=== PATIENT | female | born 1990 | race Asian ===

== ENCOUNTER 2016-11-26 22:20 | Emergency (ER) | payer OTHER ==
[2016-11-26] MEDS ORDERED: HYDROmorphone 1 MG/ML SYRINGE IVP STA (23:10)
[2016-11-26] MEDS ORDERED: SODIUM CHLORIDE 0.9% 1,000 ML IV ONE ×2 (23:10)
[2016-11-26] MEDS ORDERED: ONDANSETRON 4 MG/2 ML VIAL IVP STA (23:10)
--- NOTE | 2016-11-26 23:16 | ED Physician Documentation ---
History of Present Illness - Stated complaint Stated Complaint: BACK PX/N/V - Chief complaint Chief Complaint: Back Pain - History obtained from History obtained from: Patient, Family - History of Present Illness Timing: How many weeks ago (1) Pain level max: 9 Pain level now: 9 Improved by: nothing Worsened by: nothing - Additonal information Additional information: Patient is a 26-year-old female who is seen at [facility] 1 week ago for generalized abdominal pain and lower abdominal pain, diagnosed with UTI and placed on Macrobid. States did not really improve then tonight had sudden onset of worsening generalized abdominal pain. No fevers. No vomiting. Review of Systems Ten Systems: 10 systems reviewed and negative Constitutional: denies: Fever, Chills Ears: denies: Ear pain Nose: denies: Rhinorrhea / runny nose, Congestion Throat: denies: Sore throat Cardiac: denies: Chest pain / pressure Respiratory: denies: Cough GI: reports: Abdominal Pain (diffuse). denies: Nausea, Vomiting, Diarrhea : denies: Dysuria, Frequency, Hesitancy, Now EGA Skin: denies: Rash Musculoskeletal: reports: Back pain (B flank pain). denies: Neck pain Neurologic: denies: Headache PD PAST MEDICAL HISTORY - Past Medical History Past Medical History: No - Past Surgical History Past Surgical History: No - Present Medications Home Medications: Ambulatory Orders Medication Instructions Recorded Confirmed Ciprofloxacin HCl [Cipro] 500 mg PO BID #28 tablet 11/27/16 Ondansetron Odt [Zofran] 4 mg TL Q6H PRN #10 tablet 11/27/16 Oxycodone HCl/Acetaminophen 1 - 2 each PO Q6H PRN #14 tablet 11/27/16 [Percocet 5-325 mg Tablet] - Allergies Allergies/Adverse Reactions: Allergies Allergy/AdvReac Type Severity Reaction Status Date / Time No Known Drug Allergies Allergy Verified 11/26/16 22:47 - Social History Does the pt smoke?: No Smoking Status: Never smoker Does the pt drink ETOH?: No Does the pt have substance abuse?: No - Immunizations Immunizations are current?: Yes - POLST Patient has POLST: No PD ED PE NORMAL - Vitals Vital signs reviewed: Yes - General General: Alert and oriented X 3, No acute distress, Well developed/nourished - HEENT HEENT: Moist mucous membranes - Neck Neck: Supple, no meningeal sign - Cardiac Cardiac: RRR, Strong equal pulses - Respiratory Respiratory: No respiratory distress, Clear bilaterally - Abdomen Abdomen: Soft, Non distended, Other (Diffusely tender to palpation without peritoneal signs) - Back Back: No spinal TTP, Other (Bilateral CVA tenderness) - Derm Derm: Warm and dry, No rash - Extremities Extremities: No edema, No calf tenderness / cord - Neuro Neuro: Alert and oriented X 3 - Psych Psych: Normal mood, Normal affect Results - Vitals Vitals: Vital Signs - 24 hr 11/26/16 11/27/16 11/27/16 22:44 00:04 00:53 Temperature 36.7 C 36.7 C Heart Rate 82 82 95 Respiratory 16 15 18 Rate Blood Pressure 148/93 H 126/79 137/95 H O2 Saturation 99 100 98 11/27/16 11/27/16 01:10 01:43 Temperature Heart Rate 97 88 Respiratory 18 16 Rate Blood Pressure 115/76 124/66 O2 Saturation 100 99 Oxygen O2 Source Room air - Labs Labs: Laboratory Tests 11/26/16 11/26/16 11/26/16 23:20 23:20 23:20 WBC 11.7 H RBC 4.82 Hgb 13.5 Hct 40.0 MCV 83.0 MCH 28.0 MCHC 33.8 RDW 13.2 Plt Count 260 MPV 7.1 L Neut # 7.0 H Lymph # 3.3 [place] # 1.0 Eos # 0.3 Baso # 0.1 Absolute Nucleated RBC 0.00 Nucleated RBCs 0.0 Sodium 138 Potassium 4.0 Chloride 104 Carbon Dioxide 27 Anion Gap 7.0 BUN 16 Creatinine 1.0 Estimated GFR (MDRD) 68 L Glucose 86 Calcium 10.0 Total Bilirubin 0.5 AST 28 ALT 21 Alkaline Phosphatase 56 Total Protein 7.1 Albumin 4.3 Globulin 2.8 Albumin/Globulin Ratio 1.5 Lipase 47 Serum HCG, Qual NEGATIVE Urine Color Urine Clarity Urine pH Ur Specific [place] Urine Protein Urine Glucose (UA) Urine Ketones Urine Occult Blood Urine Nitrite Urine Bilirubin Urine Urobilinogen Ur Leukocyte Esterase Urine RBC Urine WBC Ur Squamous Epith Cells Urine Bacteria Ur Microscopic Review Urine Culture Comments 11/27/16 00:45 WBC RBC Hgb Hct MCV MCH MCHC RDW Plt Count MPV Neut # Lymph # [place] # Eos # Baso # Absolute Nucleated RBC Nucleated RBCs Sodium Potassium Chloride Carbon Dioxide Anion Gap BUN Creatinine Estimated GFR (MDRD) Glucose Calcium Total Bilirubin AST ALT Alkaline Phosphatase Total Protein Albumin Globulin Albumin/Globulin Ratio Lipase Serum HCG, Qual Urine Color YELLOW Urine Clarity CLEAR Urine pH 6.0 Ur Specific [place] <=1.005 Urine Protein 30 H Urine Glucose (UA) NEGATIVE Urine Ketones NEGATIVE Urine Occult Blood TRACE-INTA Urine Nitrite NEGATIVE Urine Bilirubin NEGATIVE Urine Urobilinogen 0.2 (NORMAL) Ur Leukocyte Esterase NEGATIVE Urine RBC 0-5 Urine WBC 0-3 Ur Squamous Epith Cells RARE Squamous Urine Bacteria Few Ur Microscopic Review INDICATED Urine Culture Comments NOT INDICATED - Rads (name of study) CT abd pelvis Radiology: Prelim report reviewed, EMP read contemporaneously, See rad report ( Slightly heterogeneous enhancement of the kidneys bilaterally with mild perinephric stranding. Findings could represent pyelonephritis. . Moderate to large amount of stool in the colon. No other acute abnormality seen. ) PD MEDICAL DECISION MAKING - ED course Complexity details: reviewed results, re-evaluated patient, considered differential, d/w patient, d/w family ED course: Patient is a 26-year-old female who presents to the emergency department with what appears to be pyelonephritis. She is very well-appearing, nontoxic. Will change her antibiotic to ciprofloxacin. We did discuss the risks of the medication including the black box warnings, but she is at low risk for this. Pain well controlled. Tolerating p.o. without difficulty. Patient counseled regarding signs and symptoms for which I believe and urgent re-evaluation would be necessary. Patient with good understanding of and agreement to plan and is comfortable going home at this time This document was made in part using voice recognition software. While efforts are made to proofread this document, sound alike and grammatical errors may occur. Patient also has constipation and will take a laxative at home for this Departure - Departure Disposition: 01 Home, Self Care Clinical Impression: Pyelonephritis Condition: Good Instructions: ED Kidney Infec Female Follow-Up: Meseret Celeste MD [Primary Care Provider] - Within 1 week Prescriptions: Ciprofloxacin HCl [Cipro] 500 mg PO BID #28 tablet Oxycodone HCl/Acetaminophen [Percocet 5-325 mg Tablet] 1 - 2 each PO Q6H PRN # 14 tablet PRN Reason: pain Ondansetron Odt [Zofran] 4 mg TL Q6H PRN #10 tablet PRN Reason: Nausea / Vomiting Comments: Take all antibiotics until gone. Return if you worsen. Do not drink alcohol or drive while on narcotic pain medicine. Note that many narcotic pain relievers also contain tylenol/acetaminophen. Please ensure that your total dose of acetaminophen from all sources does not exceed 3 grams (3000mg) per day. You may constipated on this medication, take a stool softener such as "Colace" twice a day while you are on it. Also recommend a kpoz-vha-aluzljg laxative such as senna or MiraLAX any day that you do not have a bowel movement. If you received narcotic pain medication in the emergency department, do not drive or operate machinery for the next 24 hours. Your blood pressure was elevated today on check in to the emergency department. This does not mean that you have hypertension, it is a common phenomenon to check into the emergency department and have elevated blood pressure. I recommend that you see your primary care physician within the week to have it rechecked when you're feeling better. Discharge Date/Time: 11/27/16 01:46
[2016-11-26] MEDS ORDERED: HYDROmorphone 1 MG/ML SYRINGE ONE (23:18)
[2016-11-26] MEDS ORDERED: ONDANSETRON 4 MG/2 ML VIAL ONE (23:18)
[2016-11-26 23:39] LABS: BASOPHILS # (AUTO) 0.1 10^3/uL (0.0-0.1); BASOPHILS % (AUTO) 0.8 %; EOSINOPHILS # (AUTO) 0.3 10^3/uL (0.0-0.7); EOSINOPHILS % (AUTO) 2.4 %; HGB - HEMOGLOBIN 13.5 g/dL (12.0-16.0); LYMPHOCYTES # (AUTO) 3.3 10^3/uL (1.5-3.5); LYMPHOCYTES % (AUTO) 28.1 %; MEAN CORPUSCULAR HGB CONC 33.8 g/dL (32.0-36.0); MEAN PLATELET VOLUME 7.1 fL (7.9-10.8); MONOCYTES % (AUTO) 8.8 %; NEUTROPHILS % (AUTO) 59.9 %; RED BLOOD COUNT 4.82 10^6/uL (4.20-5.40); RED CELL DISTRIBUTION WIDTH 13.2 % (12.0-15.0); UNCORRECTED WHITE BLOOD COUNT 11.7 x10^3/uL; WHITE BLOOD COUNT 11.7 x10^3/uL (4.8-10.8)
[2016-11-26 23:51] LABS: ALBUMIN/GLOBULIN RATIO 1.5 (1.0-2.2); BILIRUBIN,TOTAL 0.5 mg/dL (0.2-1.0); TOTAL PROTEIN 7.1 g/dL (6.7-8.2)
[2016-11-27] MEDS ORDERED: IOPAMIDOL-300 100 ML VIAL ONE (00:08)
[2016-11-27] MEDS ORDERED: IOPAMIDOL-300 100 ML VIAL IVP ONE (00:37)
[2016-11-27 00:56] LABS: BILIRUBIN,URINE NEGATIVE (NEGATIVE)
[2016-11-27] MEDS ORDERED: PROMETHAZINE INJ 25 MG in SODIUM CHLORIDE 0.9% 50 ML IV STA (01:00)
[2016-11-27 01:05] LABS: UA w/ MICROSCOPIC CHARGE YES
[2016-11-27 01:06] LABS: UR CULTURE IF IND NOT INDICATED; WBC,URINE 0-3 /HPF (0-5)
[2016-11-27] MEDS ORDERED: PROMETHAZINE 25 MG/1 ML VIAL ONE (01:08)
--- NOTE | 2016-11-27 01:14 | CT Preliminary Report ---
Exam: CT Abdomen/Pelvis W/ IMPRESSION: 1. Slightly heterogeneous enhancement of the kidneys bilaterally with mild perinephric stranding. Fin dings could represent pyelonephritis. 2. Moderate to large amount of stool in the colon. 3. No other acute abnormality seen. [facility] SITE ID: [id number]
--- NOTE | 2016-11-27 01:17 | CT Report ---
EXAM: CT ABDOMEN AND PELVIS EXAM DATE: 11/27/2016 12:24 AM. CLINICAL HISTORY: Abdominal pain and flank pain. Recent treatment for urinary tract infection. COMPARISONS: None. TECHNIQUE: Routine helical CT imaging was performed through the abdomen and pelvis. IV contrast: Anisha onic. Enteric contrast: No. Reconstructions: Coronal and sagittal. In accordance with CT protocol optimization, one or more of the following dose reduction techniques w ere utilized for this exam: automated exposure control, adjustment of mA and/or KV based on patient s ize, or use of iterative reconstructive technique. FINDINGS: Lung Bases: Unremarkable. Liver: Normal. No masses. Gallbladder/Bile Ducts: Unremarkable. Spleen: Normal. Pancreas: Normal. Adrenal Glands: Normal. Kidneys: Mildly heterogeneous enhancement bilaterally. Mild bilateral perinephric stranding. No hydro nephrosis. No abscess. Peritoneal Cavity/Bowel: Moderate to large amount of stool in the colon. No diverticulitis. No bowel obstruction. Normal-sized mesenteric and retroperitoneal lymph nodes. No free air or free fluid. Appe ndix appears normal. Pelvic Organs: Normal. The bladder and visualized pelvic organs are within normal limits. Vasculature: No aneurysms or other significant abnormality. Bones: No significant abnormality. Other: None. IMPRESSION: 1. Slightly heterogeneous enhancement of the kidneys bilaterally with mild perinephric stranding. Fin dings could represent pyelonephritis. 2. Moderate to large amount of stool in the colon. 3. No other acute abnormality seen. [facility] Referring Provider Line: [phone] SITE ID: [id number]
[2016-11-27] MEDS ORDERED: CIPROFLOXACIN 250 MG TABLET PO STA (01:18)
[2016-11-27] MEDS ORDERED: CIPROFLOXACIN 250 MG TABLET PO ONE (01:28)
[2016-11-27 01:45] VITALS: BP 124/66
== END 2016-11-27 01:46 | disposition home or self-care (01) ==
LOC: ED 22:20
DX: N12 Tubulo-interstitial nephritis, not specified as acute or chronic (principal); R03.0 Elevated blood-pressure reading, without diagnosis of hypertension
CPT/HCPCS: 36415; 74177; 80053; 81001; 83690; 84703; 85025; 96365; 96375; 99284; A9270; J1170; J7040; Q9967; 81003; 87086

== ENCOUNTER 2017-08-02 08:34 | Emergency (ER) | payer OTHER ==
[2017-08-02] MEDS ORDERED: KETOROLAC 60 MG/2 ML VIAL IM STA (09:10)
[2017-08-02] MEDS ORDERED: DEXAMETHASONE 10 MG/ML VIAL PO STA (09:10)
--- NOTE | 2017-08-02 09:14 | ED Physician Documentation ---
PD HPI NECK PAIN - Stated complaint Stated Complaint: BACK,NECK PX- R SHOULDER PX - Chief complaint Chief Complaint: Back Pain - History obtained from History obtained from: Patient - History of Present Illness Timing - onset: How many days ago (2) Timing - duration: Days (2) Timing - details: Abrupt onset, Still present, Waxing and waning Location: Lower, Right Quality: Pain, Spasm, Sharp Associated symptoms: No: Fever, Weakness, Numbness Improves with: Rest, Position, Meds Worsened by: Movement, Lifting Contributing factors: Other (lifting in the gym) Similar symptoms before: Has not had sx before Recently seen: Not recently seen - Additional information Additional information: 27-year-old previously healthy female has been doing some lifting in the gym and on Tuesday 2 days ago she developed acute pain in her neck and right upper arm. She took some Naprosyn and this seemed to help she had less pain yesterday and today she woke up with no pain. She went to the gym workout and was okay with workout and then when she was brushing her hair she had sudden onset of spasm in the right lower neck and right shoulder Review of Systems Constitutional: denies: Fever Eyes: denies: Decreased vision Ears: denies: Ear pain Nose: denies: Congestion Throat: denies: Sore throat Cardiac: denies: Chest pain / pressure Respiratory: denies: Dyspnea, Cough GI: denies: Abdominal Pain, Nausea, Vomiting : denies: Dysuria, Frequency PD PAST MEDICAL HISTORY - Past Medical History Past Medical History: No - Past Surgical History Past Surgical History: No - Present Medications Home Medications: Ambulatory Orders Medication Instructions Recorded Confirmed Ciprofloxacin HCl [Cipro] 500 mg PO BID #28 tablet 11/27/16 Ondansetron Odt [Zofran] 4 mg TL Q6H PRN #10 tablet 11/27/16 Oxycodone HCl/Acetaminophen 1 - 2 each PO Q6H PRN #14 tablet 11/27/16 [Percocet 5-325 mg Tablet] Cyclobenzaprine [Flexeril] 10 mg PO TID PRN #20 tablet 08/02/17 HYDROcod/ACETAM 5/325 [[place] 5/325] 1 - 2 ea PO Q6H PRN #15 tablet 08/02/17 - Allergies Allergies/Adverse Reactions: Allergies Allergy/AdvReac Type Severity Reaction Status Date / Time No Known Drug Allergies Allergy Verified 11/26/16 22:47 - Social History Does the pt smoke?: No Smoking Status: Never smoker Does the pt drink ETOH?: No Does the pt have substance abuse?: No - Immunizations Immunizations are current?: Yes - POLST Patient has POLST: No PD ED PE NORMAL - Vitals Vital signs reviewed: Yes (normal ) - General General: Alert and oriented X 3, No acute distress - HEENT HEENT: Atraumatic, PERRL, EOMI - Neck Neck: Supple, no meningeal sign, No bony TTP, Other (There is dense spasm to the paraspinous muscles at the C7 T1 area over the top of the scapula on the right side. She has preserved range of motion to the shoulder and arm and she has restriction in movment of the neck related to the spasms. ) - Cardiac Cardiac: RRR, No murmur - Respiratory Respiratory: No respiratory distress, Clear bilaterally - Back Back: No CVA TTP, No spinal TTP - Derm Derm: Normal color, Warm and dry, No rash - Extremities Extremities: No deformity, No edema - Neuro Neuro: No motor deficit, No sensory deficit Eye Opening: Spontaneous Motor: Obeys Commands Verbal: Oriented GCS Score: 15 - Psych Psych: Normal mood, Normal affect Results - Vitals Vitals: Vital Signs - 24 hr 08/02/17 08:44 Temperature 36.9 C Heart Rate 84 Respiratory 16 Rate Blood Pressure 115/79 O2 Saturation 98 Oxygen O2 Source Room air PD MEDICAL DECISION MAKING - ED course Complexity details: considered differential, d/w patient ED course: Healthy-appearing 27-year-old female with acute spasm of the paraspinous muscles in the lower neck and right shoulder. She is administered dexamethasone 10 mg and Toradol 60 mg IM. We will place her on some pain medication muscle relaxant I have encouraged her to hydrate and reduce her level of activity. Departure - Departure Disposition: 01 Home, Self Care Clinical Impression: Thoracic myofascial strain Qualifiers: Encounter type: initial encounter Qualified Code(s): S29.019A - Strain of muscle and tendon of unspecified wall of thorax, initial encounter Condition: Stable Instructions: ED Spasm Muscle, ED Sprain Strain Neck Follow-Up: Meseret Celeste MD [Primary Care Provider] - Prescriptions: Cyclobenzaprine [Flexeril] 10 mg PO TID PRN #20 tablet PRN Reason: Spasms HYDROcod/ACETAM 5/325 [[place] 5/325] 1 - 2 ea PO Q6H PRN #15 tablet PRN Reason: Pain Forms: Activity restrictions
[2017-08-02] MEDS ORDERED: CHERRY SYRUP 10 ML UDC PO ONE (09:24)
[2017-08-02 09:25] VITALS: BP 120/85
== END 2017-08-02 09:25 | disposition home or self-care (01) ==
LOC: ED 08:34
DX: S29.019A Strain of muscle and tendon of unspecified wall of thorax, initial encounter (principal); X50.9XXA Other and unspecified overexertion or strenuous movements or postures, initial encounter; Y93.89 Activity, other specified; Y92.39 Other specified sports and athletic area as the place of occurrence of the external cause
CPT/HCPCS: 96372; 99283; A9270

== ENCOUNTER 2017-12-27 14:20 | Outpatient (CLI) | payer OTHER | END 2017-12-27 14:21 | disposition home or self-care (01) | LOC: SC 14:20 | PROVIDERS: ATTEND Internal Medicine Pulmonary Disease | DX: R20.2 Paresthesia of skin (principal); G47.8 Other sleep disorders; R29.898 Other symptoms and signs involving the musculoskeletal system; D50.9 Iron deficiency anemia, unspecified | CPT/HCPCS: 99203; 99212 ==